=== PATIENT | female | born 1990 | race Caucasian/White ===

== ENCOUNTER → 2024-12-15 | Outpatient (CLI) | payer OTHER, SELFPAY ==
[2024-12-15 08:39] LABS: Basophils # (Auto) 0.1 Thou/mm3 (0.0-0.2); Basophils % (Auto) 1 % (0-2.5); Eosinophils # (Auto) 0.3 Thou/mm3 (0.0-0.5); Eosinophils % (Auto) 3 % (0-10); Glucose Estimated Average 137 mg/dL (80-131); Hematocrit 44.1 % (36.0-46.0); Hemoglobin 14.4 g/dL (12.0-16.0); Hemoglobin A1C 6.4 % Hgb (4.8-6.0); Immature Granulocytes % (Auto) 0 % (0-0); Immature Granulocytes Auto 0.03 Thou/mm3 (0.00-0.00); Lymphocytes # (Auto) 2.7 Thou/mm3 (1.0-4.8); Lymphocytes % (Auto) 29 % (10-50); Mean Corpuscular HGB Conc 32.7 g/dl (31.0-37.0); Mean Corpuscular Hemoglobin 26.7 pg (25.0-35.0); Mean Corpuscular Volume 82 fL (80-100); Monocytes # (Auto) 0.7 Thou/mm3 (0.0-0.8); Monocytes % (Auto) 7 % (0-12); Neutrophils # (Auto) 5.7 Thou/mm3 (1.8-7.7); Neutrophils % (Auto) 60 % (37-80); Nucleated Red Blood Cell % 0 /100 WBC (0); Platelet Count 324 Thou/mm3 (140-440); RDW Standard Deviation 43.4 fL (36.4-46.3); White Blood Count 9.5 Thou/mm3 (3.6-11.0)
[2024-12-15 08:46] LABS: Alanine Aminotransferase 35 U/L (10-49); Albumin, Serum 4.5 gm/dL (3.5-5.0); Albumin/Globulin Ratio 1.7 (1.2-2.2); Alkaline Phosphatase 70 U/L (46-116); Anion Gap 10 (7-16); Aspartate Amino Transferase 20 U/L (0-34); BUN/Creatinine Ratio 12 Ratio (12-20); Bilirubin,Total 0.5 mg/dL (0.3-1.2); Blood Urea Nitrogen 12 mg/dL (9-23); Calcium 9.9 mg/dL (8.3-10.6); Calcium (Corrected) 9.9 mg/dL (8.5-10.1); Carbon Dioxide 26.1 mMol/L (20.0-31.0); Cardiac Risk Estimate 3.6 RATIO (3.7-5.6); Chloride 105 mMol/L (98-107); Cholesterol 135 mg/dL (132-200); Folate 18.87 ng/mL (>5.38); Follicle Stimulating Hormone 4.28 mIU/mL (See Note); Free T4 (Free Thyroxine) 1.21 ng/dL (0.89-1.76); Globulin 2.7 gm/dL (2.3-3.5); Glucose 132 mg/dL (74-106); HDL Cholesterol 37 mg/dL (40-60); LDL Cholesterol,Calculated 58 mg/dL (0-130); Osmolality,Calculated 282 (275-295); Potassium 4.4 mMol/L (3.4-5.1); Sodium 141 mMol/L (136-145); Thyroid Stimulating Hormone 2.44 uIU/mL (0.55-4.78); Total Protein 7.2 gm/dL (5.7-8.2); Triglycerides 199 mg/dL (30-150); Vitamin B12 462 pg/mL (211-911); eGFR > 60 See Note
[2024-12-21 06:39] LABS: DHEA Sulfate* 82 mcg/dL (23-266); Estradiol, Ultrasensitive* 88 pg/mL; Insulin* 45.6 uIU/mL (< OR = 18.4); Luteinizing Hormone* 2.7 mIU/mL; Testosterone, Free,Dialysis 2.2 pg/mL (0.1-6.4); Testosterone, Total, Dialysis 17 ng/dL (2-45)
== END | disposition home or self-care (01) ==
LOC: COPL 06:44
PROVIDERS: PCP Family Medicine; Referring Provider Nurse Practitioner Family; Visit Provider Nurse Practitioner Family
DX: Z13.29 Encounter for screening for other suspected endocrine disorder (principal); Z13.220 Encounter for screening for lipoid disorders; E11.9 Type 2 diabetes mellitus without complications; I10 Essential (primary) hypertension; E53.8 Deficiency of other specified B group vitamins; E28.2 Polycystic ovarian syndrome
CPT/HCPCS: 36415; 80053; 80061; 82607; 82627; 82670; 82746; 83001; 83002; 83036; 83525; 84402; 84403; 84439; 84443; 85025